=== PATIENT | female | born 1970 | race Caucasian/White ===

== ENCOUNTER 2020-03-08 13:38 | Emergency (ER) | payer OTHER ==
--- NOTE | 2020-03-08 14:12 | EDM.PDOC ---
ED HPI GENERAL MEDICAL PROBLEM - General Chief Complaint: Burn Stated Complaint: BURN R LEG AND R FOOT Time Seen by Provider: 03/08/20 13:55 Source of Information: Reports: Patient History Limitations: Reports: No Limitations - History of Present Illness INITIAL COMMENTS - FREE TEXT/NARRATIVE: c/o burn pt is a cook at [employer], she had a neri of chicken, the liquid sloshed out and landed on her thigh and foot pt take ibuprofen 2 tabs most days for HAs Treatments RN LPN CNA: Reports: Cold Therapy - Related Data Allergies Allergy/AdvReac Type Severity Reaction Status Date / Time No Known Allergies Allergy Verified 03/08/20 14:11 Home Meds: Home Meds Silver Sulfadiazine [Silvadene 1% Cream 25 GM] 1 applic TOP BID #25 gm 03/08/20 [Rx] ED ROS GENERAL - Review of Systems Review Of Systems: See Below Constitutional: Reports: No Symptoms HEENT: Reports: No Symptoms Respiratory: Reports: No Symptoms Cardiovascular: Reports: No Symptoms Endocrine: Reports: No Symptoms GI/Abdominal: Reports: No Symptoms : Reports: No Symptoms Musculoskeletal: Reports: No Symptoms Skin: Reports: Burn(s) Neurological: Reports: No Symptoms Psychiatric: Reports: No Symptoms Hematologic/Lymphatic: Reports: No Symptoms Immunologic: Reports: No Symptoms ED EXAM, SKIN/RASH Exam: See Below Exam Limited By: No Limitations General Appearance: Alert, WD/WN, No Apparent Distress Neck: Normal Inspection Respiratory/Chest: No Respiratory Distress Cardiovascular: Regular Rate, Rhythm Neurological: Alert, Oriented, CN II-XII Intact, Normal Cognition, No Motor/Sensory Deficits Skin: Other (on R thigh anterior there is a faint redness in an area of 50 x 50 cm, all toes except great toe on R have blisters dorsally with little toe having involvment of 95% of the dorsal surface and the other toes 30-50%, there is some adjacent red spreading to the base of the toes, no red between toes, soles and toe pads spared) Lymphatic: No Adenopathy Course - Re-Assessments/Exams Free Text/Narrative Re-Assessment/Exam: 03/08/20 14:17 the large blister on the R 5th toe will likely rupture, will have pt go barefoot at home for 2d and limit walking, it is best not to work for several days to avoid socks and shoes which will only cause friction and increase risk of further injury and secondary infection, pt has triple antbx ointment at home, also given Rx for Silvadene pt says she has no local PCP, obtaining a PCP or going to urgent care recommended Departure - Departure Time of Disposition: 14:07 Disposition: Home, Self-Care 01 Condition: Good Clinical Impression: Second degree burn of toe of right foot, First degree burn of right thigh - Discharge Information *PRESCRIPTION DRUG MONITORING PROGRAM REVIEWED*: Not Applicable *COPY OF PRESCRIPTION DRUG MONITORING REPORT IN PATIENT [facility]ORA: Not Applicable Prescriptions: Silver Sulfadiazine [Silvadene 1% Cream 25 GM] 1 applic TOP BID #25 gm Instructions: Second-Degree Burn, Adult Forms: ED Department Discharge, ED Return to Work/School Form Additional Instructions: For pain, take ibuprofen 200 mg 4 tabs 3 times a day for 2 days, longer if ne eded. Avoid rupturing the blister. Avoid shoes and socks for the next 2 days. Use cool water for 10 minutes every hour for today and tomorrow. If the blisters rupture, use antibiotic cream or Silvadene thin layer 2 times a day. While infection is unlikely, see a physician the same day for any increase in redness, swelling, pain, warmth, fever or drainage. See your physician (or go to urgent care) in 4-5 days. Return to ED as needed. No work for the next 3 days.
== END 2020-03-08 14:20 | disposition home or self-care (01) ==
LOC: FB.ED 13:38
DX: T25.221A Burn of second degree of right foot, initial encounter (principal); T24.111A Burn of first degree of right thigh, initial encounter; X10.2XXA Contact with fats and cooking oils, initial encounter
CPT/HCPCS: 99283